=== PATIENT | female | born 1965 | race Caucasian/White ===

== ENCOUNTER 2019-06-15 09:14 | Outpatient (CLI) | payer SELFPAY ==
[2019-06-15] MEDS ORDERED: BUPIVACAINE 0.5%-EPI 1:200000 PF 10 ML VIAL ONE (10:12)
[2019-06-15] MEDS ORDERED: BUFFERED LIDOCAINE 10 ML SYRINGE ONE (10:12)
--- NOTE | 2019-06-15 15:43 | XRAY Report ---
Reason: FOLLOW UP TO BREAST BIOPOSY Procedure Date: 06/15/2019 Accession Number: [id number] / [id number] Procedure: XR - Chest 2 View X-Ray CPT Code: 33146 FULL RESULT: EXAM: CHEST RADIOGRAPHY EXAM DATE: 06/15/2019 12:24 PM. CLINICAL HISTORY: Breast biopsy. Follow-up. COMPARISON: None. TECHNIQUE: 2 views. FINDINGS: Lungs/Pleura: No focal opacities evident. No pleural effusion. No pneumothorax. Normal volumes. Mediastinum: Heart size is normal. Aorta is mildly tortuous. Other: None. IMPRESSION: 1. No acute disease in the chest. RADIA
--- NOTE | 2019-06-15 16:09 | Ultrasound Report ---
Reason: LUMP ON LEFT BREAST SUSPICIOUS FOR CANCER Procedure Date: 06/15/2019 Accession Number: [id number] / [id number] Procedure: US - Biopsy Breast Core CPT Code: FULL RESULT: PROCEDURE: Ultrasound-guided needle biopsy left breast mass. Ultrasound-guided core needle biopsy of left axillary lymph node. Ultrasound guided core needle biopsy of left breast masslike architectural distortion in region of suspicious calcifications distant from the biopsied mass. CLINICAL DATA: Targeted mass measuring up to 2.5 cm with irregular margins in the 9 o'clock axis of the left breast. Informed consent was obtained. Using standard aseptic technique, both 1% buffered lidocaine was injected into the breast for local anesthesia. A small kinga was made in the skin with a #11 blade. A 12-gauge [employer] vacuum-assisted device was used to obtain 2 specimens from the mass. . A specialized biopsy marker clip was placed into the biopsy cavity under ultrasound guidance. The same procedure was repeated for sonographic architectural distortion in the anterior medial left breast corresponding to the location of suspicious calcifications on mammogram. Attention was then turned to the exam. Under sterile conditions, the subjectively morphologically most suspicious lymph node was selected and core biopsy with 2 samples obtained was performed with a 18-gauge core biopsy needle under sonographic guidance with local lidocaine anesthesia. A biopsy marker clip was placed. The patient was taken to separate mammography machine and a two-view digital mammography was performed to verify the clip placement and any complications. The mammography showed a clip in the left axilla, a clip immediately adjacent to the targeted mass and a clip in the anterior medial left breast in the region of suspicious calcifications. The wound was dressed and ice applied. The patient was observed for approximately 15 minutes, then was discharged from diagnostic imaging Department in good condition following instructions on wound care and obtaining biopsy results. The patient is scheduled to receive the biopsy results from the referring physician. The tissue was sent for histologic analysis. IMPRESSION: Ultrasound-guided biopsy of the breast at 2 sites with ultrasound-guided core biopsy of axillary lymph node. AN ADDENDUM WILL BE MADE TO THIS REPORT WHEN PATHOLOGY IS REVIEWED TO ESTABLISH CONCORDANCE.
[2019-06-15] MEDS ORDERED: BUPIVACAINE 0.5%-EPI 1:200000 PF 10 ML VIAL SUBQ ONE (16:38)
[2019-06-15] MEDS ORDERED: BUFFERED LIDOCAINE 10 ML SYRINGE IU ONE (16:38)
== END 2019-06-15 09:15 | disposition home or self-care (01) ==
LOC: DI 09:14
PROVIDERS: ATTEND Nurse Practitioner
DX: C50.212 Malignant neoplasm of upper-inner quadrant of left female breast (principal); C77.3 Secondary and unspecified malignant neoplasm of axilla and upper limb lymph nodes; Z17.0 Estrogen receptor positive status [ER+]
CPT/HCPCS: 19083; 19084; 38505; 71046

== ENCOUNTER 2019-07-06 09:26 | Outpatient (CLI) | payer SELFPAY ==
[2019-07-06] MEDS ORDERED: GADOBUTROL 15 MMOL/15 ML VIAL ONE (10:48)
[2019-07-06] MEDS ORDERED: GADOBUTROL 15 MMOL/15 ML VIAL IVP ONE (11:13)
--- NOTE | 2019-07-06 15:55 | MRI Report ---
Reason: ABNORMAL MAMMOGRAM Procedure Date: 07/06/2019 Accession Number: [id number] / [id number] Procedure: MRI - Breast W/WO Cont CPT Code: 47054 FULL RESULT: EXAM: Breast W/WO Cont DATE: 07/06/2019 11:20 AM CLINICAL HISTORY: 54-year-old female with recent biopsy-proven malignancy posterior 9:00 left breast with biopsy-proven metastatic lymph node. Highly suspicious segmental calcifications in the same radian, extending nearly to the nipple by mammography. Ultrasound-guided biopsy in the region of the suspicious calcifications mid breast returned benign histology, which is discordant. Breast MRI performed for preoperative assessment. COMPARISON: 06/15/2019 through 06/13/2019. TECHNIQUE: Body Coil: (Limited chest MRI) - Coronal LFOV STIR Dedicated breast coil: Axial - precontrast STIR Axial - postcontrast sequential 1 minute three-dimensional FLASH (x 5) Axial - high-resolution volumetric water stimulation acquisition (VIEWS) CONTRAST USED: 10 mL Gadavist (gadolinium). POSTPROCESSING: Subtraction dynamic/curve analysis and multiplanar reformations with CAD stream FINDINGS: Right breast: There are scattered fibroglandular tissues and minimal benign background breast parenchymal enhancement. There are no areas of suspicious enhancement or lymphadenopathy. Left breast: There are scattered fibroglandular tissues and minimal benign background breast parenchymal enhancement. In the 9:00 breast 10 cm from the nipple, there is a heterogeneously densely enhancing irregular mass measuring 2.8 x 2.6 x 2.4 cm (AP x SI x ML) with associated biopsy marker corresponding to biopsy-proven malignancy. Mass is producing a small amount of tenting upon the fascia of the pectoralis muscle but there is no evidence of fascial or muscular invasion. In the 9:00 breast extending anterior from and contiguous with the biopsy-proven malignancy, there is heterogeneous, stippled non-mass enhancement in a segmental distribution corresponding to mammographically suspicious calcifications measuring 7.4 x 3.8 x 3.4 cm (AP x SI x ML), extending to within 3.5 cm of the nipple. This finding corresponds to site of benign/discordant ultrasound-guided breast biopsy. In the 8:00 subareolar breast and extending into the nipple, there is branching linear non-mass enhancement measuring 1.8 x 1.5 x 1.6 cm (AP x SI x ML), corresponding to a third mammographic finding/grouped branching pleomorphic calcifications. Reference images axial 73/133, sagittal 59/159, coronal 209/319. Largest AP extent of biopsy-proven malignancy and abnormal enhancement is 12.3 cm, and extends to involve the nipple; MRI extent is concordant with mammographic extent. There are no additional areas of suspicious enhancement within the breast. There is a single enlarged abnormal morphology left axillary lymph node with absent hilar fat, consistent with the biopsy-proven metastatic lymph node; biopsy marker is not identified on the MRI. IMPRESSION: Right breast: Negative. BI-RADS Category 1. Recommend annual screening mammography. Left breast: 1. 2.8 cm enhancing irregular mass 9:00 breast 10 cm from the nipple and abnormal axillary lymph node corresponding to biopsy-proven malignancy. Known malignancy. Appropriate action is recommended, treatment plan is ongoing. 2. Contiguous 7.4 cm extent of non-mass enhancement corresponding to highly suspicious calcifications at mammography. Highly suggestive of malignancy. BI-RADS Category 5. Appropriate action is recommended; if breast conservation is contemplated, stereotactic breast biopsy to confirm extent is recommended. 3. Focal 1.8 cm non-mass enhancement 8:00 subareolar breast extending into the nipple corresponding to suspicious calcifications at mammography. Suspicious. Appropriate action is recommended; if breast conservation is contemplated stereotactic breast biopsy to confirm extent is recommended. Above results were discussed with breast surgeon Dr. Rena Kelly 07/06/2019. Overall BI-RADS: BI-RADS Category 5. COMMENT: The literature indicates that a negative dynamic breast MRI has a high sensitivity and specificity for the detection of invasive carcinoma (to a threshold of 5 mm). MRI is not reliably sensitive for detecting ductal carcinoma in situ or large invasive neoplasms with only minimal enhancement (i.e. mucinous carcinoma). Normal-appearing lymph nodes on MRI may contain microscopic tumor. Appropriate clinical mammographic and sonographic followup should be performed if recommended. Negative MRI should not dissuade further evaluation of any suspicious mammographic calcifications and/or worrisome palpable masses.
== END 2019-07-06 09:27 | disposition home or self-care (01) ==
LOC: DI 09:26
PROVIDERS: ATTEND Surgery
DX: C50.812 Malignant neoplasm of overlapping sites of left female breast (principal)
CPT/HCPCS: 77049; A9585

== ENCOUNTER 2019-07-09 12:44 | Outpatient (CLI) | payer SELFPAY | END 2019-07-09 12:45 | disposition home or self-care (01) | LOC: RT 12:44 | PROVIDERS: ATTEND Surgery | DX: Z01.810 Encounter for preprocedural cardiovascular examination (principal); C50.912 Malignant neoplasm of unspecified site of left female breast | CPT/HCPCS: 93005 ==

== ENCOUNTER 2019-07-13 08:12 | Day surgery (SDC) | payer SELFPAY ==
[2019-07-13] MEDS ORDERED: PROPOFOL 200 MG/20 ML VIAL IVP ONE (08:13)
[2019-07-13] MEDS ORDERED: ACETAMINOPHEN 1,000 MG/100 ML 100 ML IV ONE (08:13)
[2019-07-13] MEDS ORDERED: LIDOCAINE-MPF 2% 5 ML VIAL IM ONE (08:13)
[2019-07-13] MEDS ORDERED: ONDANSETRON 4 MG/2 ML VIAL IVP ONE (08:13)
[2019-07-13] MEDS ORDERED: ePHEDrine 50 MG/ML VIAL IVP ONE (08:13)
[2019-07-13] MEDS ORDERED: ROCURONIUM 50 MG/5 ML VIAL IVP ONE (08:13)
[2019-07-13] MEDS ORDERED: DEXAMETHASONE 4 MG/ML VIAL IVP ONE (08:13)
[2019-07-13] MEDS ORDERED: fentaNYL 100 MCG/2 ML VIAL IVP ONE (08:13)
[2019-07-13] MEDS ORDERED: MIDAZOLAM 2 MG/2 ML VIAL IVP ONE (08:13)
[2019-07-13] MEDS ORDERED: CEFAZOLIN SODIUM IN 0.9 % NACL 2 GM/100 ML BAG IV ONE (08:26)
[2019-07-13] MEDS ORDERED: LACTATED RINGERS 1,000 ML IV ONE ×2 (08:39→16:31)
--- NOTE | 2019-07-13 10:15 | ANESTHESIA ---
Pre-Anesthesia VS, & Labs <Mariela Montoya - Last Filed: 07/13/19 09:52> - Is Patient ?: Not Applicable - Lab Results Lab results reviewed: No <Macario Venegas - Last Filed: 07/13/19 10:56> - Diagnosis left breast cancer (Mariela Montoya) - Procedure left sentinel node dissection, portacath, bilateral mastectomy (Mariela Montoya) Vital Signs: Temp Pulse Resp BP Pulse Ox 36.4 C L 53 L 18 128/72 98 07/13/19 08:21 07/13/19 08:21 07/13/19 08:21 07/13/19 08:21 07/13/19 08:21 Height 5 ft 10 in Weight (kg) 91.9 kg Home Medications and Allergies <Mariela Montoya - Last Filed: 07/13/19 09:52> <Macario Venegas - Last Filed: 07/13/19 10:56> Home Medications: Ambulatory Orders Cholecalciferol (Vitamin D3) [Vitamin D] 2,000 unit PO DAILY 07/09/19 Cholecalciferol (Vitamin D3) [Vitamin D] 2,000 unit PO DAILY 07/09/19 Allergies/Adverse Reactions: Allergies Allergy/AdvReac Type Severity Reaction Status Date / Time No Known Drug Allergies Allergy Verified 07/09/19 12:39 Anes History & Medical History - Medical History Cardiovascular: reports: None Pulmonary: reports: None Gastrointestinal: reports: None Urinary: reports: None Musculoskeletal: reports: None Endocrine/Autoimmune: reports: None Skin: reports: None - Surgical History General: Colonoscopy Gynecologic: section <Mariela Montoya - Last Filed: 07/13/19 09:52> - Anesthetic History Anesthesia Complications: reports: No previous complications Family history of Anesthesia Complications: Denies Family history of Malignant Hyperthermia: Denies - Medical History Cardiovascular: reports: None Pulmonary: reports: None Gastrointestinal: reports: None Urinary: reports: None Neuro: reports: None Musculoskeletal: reports: None Endocrine/Autoimmune: reports: None Blood Disorders: reports: None Skin: reports: None Smoking Status: Never smoker Psychosocial: reports: No issues indicated <Macario Venegas - Last Filed: 07/13/19 10:56> Exam General: Alert, Oriented x3 Dental: WNL Mouth Opening: Greater than 4 Fingerbreadths Neck Mobility: Normal Mallampati classification: II Thyromental Distance: greater than 6 cm Respiratory: Lungs clear Cardiovascular: Regular rate Mental/Cognitive Status: Alert/Oriented X3, Normal for patient Cognitive Status: Within normal limits <Macario Venegas - Last Filed: 07/13/19 10:56> Plan Anesthesia Type: General, Other Block (Pectoralis block) Consent for Procedure(s) Verified and Reviewed: Yes Code Status: Attempt Resuscitation ASA classification: 2-Mild systemic disease Is this case an emergency?: No <Macario Venegas - Last Filed: 07/13/19 10:56>
[2019-07-13] MEDS ORDERED: LIDOCAINE-MPF 1% 30 ML VIAL ONE (10:32)
[2019-07-13] MEDS ORDERED: BUPIVACAINE 0.5%-EPI 1:200000 PF 30 ML VIAL ONE (10:32)
[2019-07-13] MEDS ORDERED: SODIUM CHLORIDE 0.9% 10 ML ONE (10:32)
--- NOTE | 2019-07-13 11:05 | Nuclear Medicine Report ---
Reason: LT BREAST CA Procedure Date: 07/13/2019 Accession Number: [id number] / [id number] Procedure: NM - Lymph Node Scintigraphy CPT Code: FULL RESULT: EXAM: SENTINEL LYMPH NODE RADIOTRACER INJECTION WITH IMAGING EXAM DATE: 07/13/2019 10:49 AM. CLINICAL HISTORY: Left Breast cancer. COMPARISON: None. TECHNIQUE: The injection site of the left periareolar breast was cleansed according to protocol. Next, a total of 0.51 mCi Tc-99m sulfur colloid in 1 cc saline was injected into the same site. After appropriate delay, the patient was imaged according to the protocol. FINDINGS: A single axillary sentinel lymph node is identified within the first 3 minutes of imaging and confirmed bilateral view. The patient tolerated the procedure well. IMPRESSION: 1. [place] lymph node injection, without complication. 2. 1 focus in the axilla, compatible with sentinel lymph node. RADIA
[2019-07-13] MEDS ORDERED: fentaNYL 100 MCG/2 ML VIAL ONE (16:23)
[2019-07-13] MEDS ORDERED: ONDANSETRON 4 MG/2 ML VIAL IVP PRN (16:47)
[2019-07-13] MEDS ORDERED: oxyCODONE 5 MG TABLET ONE (16:56)
[2019-07-13 17:19] VITALS: BP 122/68
--- NOTE | 2019-07-13 18:43 | XRAY Report ---
Reason: Port placement Procedure Date: 07/13/2019 Accession Number: [id number] / [id number] Procedure: XR - Chest for Line Placement CPT Code: FULL RESULT: EXAM: CHEST RADIOGRAPHY EXAM DATE: 07/13/2019 04:03 PM. CLINICAL HISTORY: Port placement. COMPARISON: CHEST 2 VIEW 06/15/2019 12:10 PM. TECHNIQUE: 1 view. FINDINGS: Lungs/Pleura: Diffuse increased heterogeneous opacities bilaterally. No pneumothorax or large effusion. Mediastinum: Heart and mediastinal contours are unremarkable. Other: New right port tip terminates in the distal SVC. IMPRESSION: Right port tip terminates in the distal SVC. Diffusely increased heterogeneous opacities bilaterally, man part reflect overlying structures particular on the right. Interval development of edema such as noncardiogenic edema is not exudative. RADIA
--- NOTE | 2019-07-19 10:41 | OPERATIVE REPORT ---
Operative Report - General Planned Procedure: Bilateral Mastectomy with right power port placement and left sentinel node biopsy and low axillary dissection Pre-Op Diagnosis: Biopsy proven left breast cancer with kisha metastasis Procedure Performed: Bilateral Mastectomy with right power port placement and left sentinel node biopsy and low axillary dissection Post Op Diagnosis: Same - Procedure Note Primary Surgeon: Remi Anesthesia Provider: TURNER Quintana Anesthesia Technique: General LMA, Local, Regional block Pathology: 1. Right breast to pathology in formalin 2. Left sentinel node to pathology in formalin 3. Left axillary contents to pathology in formalin 4. Left breast to pathology in formalin Estimated Blood Loss (mL): 150 Drain/Tube Type: Geovani drain (1 19 F Geovani drain in the inframmary pocket on each side) Indications: Biopsy proven, locally advanced left breast cancer Findings: One sentinel node. Not the palpable and positive node Complications: None apparent - Other Other Information/Narrative: After obtaining informed consent, the patient is brought to the operating room and placed in the supine position on the operating table. Following successful induction of general endotracheal anesthesia, appropriate padding of all bony prominences, and placement appropriate monitors, bilateral chest and axilla were prepped and draped in the standard surgical fashion. A timeout was held per scope protocol. All elements of the surgical safety checklist were followed before, during, and following the procedure. We began our procedure on the right with placement of the PowerPort. Following infiltration with local anesthetic to create a field block, the right subclavian vein was accessed in the deltopectoral groove. The J-wire was gently placed into the vein and fluoroscopy confirmed position of the wire in the superior vena cava. A pocket was then created for placement of the port a proximally 3 cm inferior and medial to the access site. This pocket was formed using a mixture of sharp and blunt dissection. The tunneling device was then attached to the tubing and the tubing threaded from the access site to the port site. The tubing was trimmed in appropriate length, attached to the port, and locked into place with the attached collar.The dilator and introducer were then passed over the wire and into the vein. The dilator was removed leaving only the introducer. The tubing was then placed through the introducer and into the vein and then was removed. The port was checked for functioning by flushing and drawing through the device. It worked well. It was then locked with 2000 units of heparin saline solution. The pocket was closed in 2 layers with Vicryl Monocryl suture and Monocryl was placed at the access site. We continued with the simple mastectomy on the right side. Again following infiltration with local anesthetic, a circular incision was created to include the nipple areolar complex on the right side. This was carried down through the skin and subcutaneous tissue. Using a combination of traction and countertraction, the breast tissue was then liberated from the overlying dermis and skin circumferentially. Limits of dissection included 1 cm inferior to the port superiorly, medially the sternum, inferiorly the inframammary fold, and laterally the latissimus muscle. No attempt was made to go into the patient's axilla other than to retrieve the axillary tail of Gallardo which ended just before the axillary fat pad.The breast was then liberated in a medial to lateral fashion including the pectoralis fascia. It was passed from the table as a specimen after having been marked for orientation. The wound was irrigated with warm water and aspirated free of all fluid and particulate matter. A 19 [place] Geovani drain was then placed in the inframammary fold and brought out in the inferior medial position. It was sewn into place. The incision was then closed in layers with Vicryl and Monocryl suture and Dermabond was applied to both the right breast incision in the port site. Once the Dermabond had dried, both of these incisions were covered with a dry sterile towel. We continued our procedure on the left.We began with the sentinel node procedure.This was done by using the navigator to identify the sentinel node in the inferior portion of the left axilla.It was found to have a 10-second count of approximately 2700 and a background of 4.A single node was removed. The remainder of the axilla was checked and there were no other reactive nodes. The palpable node that had been previously biopsied was easily identified. I have been hopeful that this node would be the sentinel node but this did not prove to be the case. I elected at this point to do a low axillary dissection. This was done by gently dissecting all of the axillary contents including the axillary fat pad away from the pectoralis muscle medially, latissimus muscle posteriorly, the chest wall was the deep margin and the axillary vein was the superior margin. The axillary vein was not skeletonized. A firm mass was present in the Level 2 and 3 area. This entire mass was removed with a margin of healthy tissue surrounding it.Once it is been completed, the area was irrigated with warm water and aspirated free of all fluid and particulate matter. It was packed with a lap while we continued the procedure. Again following infiltration with local anesthetic, a circumferential incision was created around the nipple areolar complex on the left. This was carried down through the skin and subcutaneous tissue.Using a combination of traction and countertraction, the breast tissue was then liberated from the overlying dermis and skin circumferentially. Limits of dissection included 1 cm inferior to the port superiorly, medially the sternum, inferiorly the inframammary fold, and laterally the latissimus muscle. Dissection continued into the axilla to include all of the tail of Gallardo which connected our to incisions.The breast was then liberated in a medial to lateral fashion including the pectoralis fascia. It was passed from the table as a specimen after having been marked for orientation. The wound was irrigated with warm water and aspirated free of all fluid and particulate matter. A 19 [place] Egovani drain was then placed in the inframammary fold and brought out in the inferior medial position. It was sewn into place. Packing was then removed from the axillary incision and it was checked for hemostasis.Both incisions were then closed in layers with Vicryl Monocryl suture and Dermabond was applied to the skin.All sponge, needle, and instrument counts were correct at the conclusion of the case. The patient was allowed to awaken from anesthesia without difficulty and taken to the postanesthesia care unit in good condition.Chest x-ray in the postanesthesia care unit revealed the port in good position in the right subclavian vein without any evidence of pneumothorax.
== END 2019-07-13 08:13 | disposition home or self-care (01) ==
LOC: SDS 08:12
PROVIDERS: ATTEND Surgery
PROC: 0JH63WZ Insertion of Totally Implantable Vascular Access Device into Chest Subcutaneous Tissue and Fascia, Percutaneous Approach (ICD-10-PCS; 2019-07-13)
PROC: 05H533Z Insertion of Infusion Device into Right Subclavian Vein, Percutaneous Approach (ICD-10-PCS; 2019-07-13)
PROC: 0HTT0ZZ Resection of Right Breast, Open Approach (ICD-10-PCS; principal; 2019-07-13 10:00)
PROC: 0HTU0ZZ Resection of Left Breast, Open Approach (ICD-10-PCS; 2019-07-13 10:00)
PROC: 07B60ZX Excision of Left Axillary Lymphatic, Open Approach, Diagnostic (ICD-10-PCS; 2019-07-13 10:00)
DX: C50.912 Malignant neoplasm of unspecified site of left female breast (principal); C77.3 Secondary and unspecified malignant neoplasm of axilla and upper limb lymph nodes; Z17.0 Estrogen receptor positive status [ER+]; D05.12 Intraductal carcinoma in situ of left breast
CPT/HCPCS: 19303; 19307; 36561; 38900; 78195; A9270; C1788; J0131; J0690; J7120; 71045

== ENCOUNTER 2020-11-13 08:00 | Outpatient (CLI) | payer OTHER ==
[2020-11-13 23:29] LABS: CANDIDA GROUP DNA UNRESOLVED (NEGATIVE); CANDIDA KRUSEI DNA UNRESOLVED (NEGATIVE); TRICHOMONAS VAGINALIS DNA UNRESOLVED (NEGATIVE)
== END 2020-11-13 23:59 | disposition home or self-care (01) ==
LOC: LAB.R 08:00
PROVIDERS: ATTEND Obstetrics & Gynecology
DX: N89.8 Other specified noninflammatory disorders of vagina (principal)
CPT/HCPCS: 87661; 87801

== ENCOUNTER 2021-02-19 09:03 | Day surgery (SDC) | payer OTHER ==
[2021-02-19] MEDS ORDERED: LACTATED RINGERS 1,000 ML IV ONE ×2 (09:31→10:52)
[2021-02-19] MEDS ORDERED: MIDAZOLAM 2 MG/2 ML VIAL ONE ×4 (10:18→10:35)
[2021-02-19] MEDS ORDERED: fentaNYL 250 MCG/5 ML VIAL ONE (10:19)
[2021-02-19 11:24] VITALS: BP 101/62
== END 2021-02-19 09:04 | disposition home or self-care (01) ==
LOC: SDS 09:03
PROVIDERS: ATTEND Surgery
DX: Z12.11 Encounter for screening for malignant neoplasm of colon (principal); K57.30 Diverticulosis of large intestine without perforation or abscess without bleeding; C50.912 Malignant neoplasm of unspecified site of left female breast; Z79.899 Other long term (current) drug therapy; Z92.21 Personal history of antineoplastic chemotherapy; Z90.13 Acquired absence of bilateral breasts and nipples
CPT/HCPCS: 45378; J3010; J7120

== ENCOUNTER 2021-08-20 09:02 | Outpatient (CLI) | payer OTHER ==
[2021-08-20] MEDS ORDERED: IOVERSOL 320 100 ML VIAL IVP ONE ×2 (09:11→12:07)
[2021-08-20 09:49] LABS: CREATININE 0.7 mg/dL (0.4-1.0)
--- NOTE | 2021-08-20 13:24 | CT Report ---
PROCEDURE: CHEST W INDICATIONS: INFILTRATING DUCTAL CARCINOMA LEFT BREAST CONTRAST: IV CONTRAST: Optiray 320 ml: 100 PO CONTRAST: *NO PO CONTRAST TECHNIQUE: After the administration of intravenous contrast, 1 mm axial images were acquired from the pulmonary apices through the posterior costophrenic angles. Axial 5 mm soft tissue kernel reconstructions were performed as well as 8 mm axial MIP and coronal and sagittal 5 mm reformations. For radiation dose reduction, the following was used: automated exposure control, adjustment of mA and/or kV according to patient size. COMPARISON: None. FINDINGS: Image quality: Excellent. Lungs and pleura: No acute air space opacities. No pleural effusions or pneumothorax. Central and peripheral airways are patent and normal in caliber. Mediastinum: Heart size is normal. No pericardial effusion. No mediastinal or hilar adenopathy by size criteria. Thoracic aorta and central pulmonary arteries are normal in size. Esophagus is christina l in caliber. No hiatal hernia. Bones and chest wall: No suspicious bony lesions. No vertebral body compression fractures. No axil cirilo or supraclavicular adenopathy by size criteria. The thyroid is normal in size and there are no incidental findings.. Breasts are surgically absent bilaterally. Left axillary clips. Abdomen: Visualized upper abdominal solid organs appear normal. Upper abdominal bowel loops are nor mal in caliber. IMPRESSION: 1. No evidence of acute pulmonary process. 2. No evidence of metastatic disease in the chest. 3. No bony lesions identified. CLINICAL RECOMMENDATION STATEMENTS: In patients <35 years with an ITN detected on CT, MRI, or extrathyroidal ultrasound, the Committee re commends further evaluation with dedicated thyroid ultrasound if the nodule is "e1 cm and has no susp icious imaging features, and if the patient has normal life expectancy. In patients "e35 years with an ITN detected on CT, MRI, or extrathyroidal ultrasound, the Committee r ecommends further evaluation with dedicated thyroid ultrasound if the nodule is "e1.5 cm and has no s uspicious imaging features, and if the patient has normal life expectancy. (ACR, 2014) Reviewed by: Luis Duron MD on 08/20/2021 1:23 PM PDT Approved by: Luis Duron MD on 08/20/2021 1:23 PM PDT Station ID: [id number]
== END 2021-08-20 09:03 | disposition home or self-care (01) ==
LOC: DI 09:02
PROVIDERS: ATTEND Surgery
DX: C50.912 Malignant neoplasm of unspecified site of left female breast (principal); R07.89 Other chest pain; M79.622 Pain in left upper arm
CPT/HCPCS: 36415; 71260; 82565; Q9967